=== PATIENT | female | born 1960 | race Caucasian/White ===

== ENCOUNTER → 2024-12-24 | Outpatient (CLI) | payer MEDICARE, SELFPAY ==
--- NOTE | 2024-12-24 11:24 | RAD_ITS ---
PROCEDURE: CHEST PA AND LATERAL REASON FOR EXAM: Chest pain. TECHNIQUE: Frontal and lateral views of the chest. COMPARISON: None FINDINGS: Mild increased linear markings at the lung bases suggestive of mild linear basilar atelectasis. Decreased bronchovascular markings in the upper lobes suggestive of possible emphysematous changes. Bilateral shoulder replacement. Demineralization of the thoracic vertebrae with mild loss of height of the mid dorsal vertebrae. Multilevel disc space narrowing. RAD/Chest PA and Lateral IMPRESSION: Mild degree of increased linear markings at the lung bases suggestive of mild s carring. Decreased bronchovascular markings in the upper lobes suggestive of possible em physematous change. Reading Location: [id number]
== END | disposition home or self-care (01) ==
LOC: MTRAD 11:22
PROVIDERS: PCP Pediatrics; Referring Provider Physician Assistant Surgical; Visit Provider Physician Assistant Surgical
DX: R07.89 Other chest pain (principal)
CPT/HCPCS: 71046